=== PATIENT | male | born 2000 | race African-American/Black ===

== ENCOUNTER 2024-04-01 17:04 | Emergency (ER) | payer OTHER ==
[2024-04-01] MEDS ORDERED: TDAP (DIPHTH,PERTUSS(ACELL),TET VAC) 0.5 ML VIAL IMVAC ONE (17:34)
[2024-04-01] MEDS ORDERED: HYDROCODONE/APAP 7.5/325 MG TAB ONE (17:34)
[2024-04-01] MEDS ORDERED: LIDOCAINE 1% 20 ML MDV ONE (17:34)
--- NOTE | 2024-04-01 18:03 | RAD REPORT ---
EXAM DESCRIPTION: RAD - Chest Pa And Lat (2 Views) - 04/01/2024 5:57 pm CLINICAL HISTORY: foreign body Chest pain. COMPARISON: No comparisons FINDINGS: The lungs are clear. The heart is normal in size. No displaced fractures. Soft tissue fore ign bodies posteriorly. IMPRESSION: No acute or concerning finding suspected.
--- NOTE | 2024-04-01 18:26 | EDPHYS ---
Physician Documentation [facility] Name: Reggie Kim Age: 23 yrs Sex: Male : 2000 Arrival Date: 04/01/2024 Time: 17:04 Bed 6 Private MD: ED Physician Dwayne Burleson HPI: 04/01 17:25 This 23 yrs old Black Male presents to ER via EMS with complaints of Puncture Wound To sb4 Back - Tased by police. 17:25 patient was tased by the police just [employer]IST[employer] RE[employer]IONIST and 2 of the barbs are stuck in his back. he sb4 is unsure if his tetanus is up to date. olga any other injuries. Historical: - Allergies: 17:12 No Known Allergies; ph - PMHx: 17:12 None; ph - Immunization history:: Adult Immunizations unknown. - Infectious Disease History:: Denies. - Social history:: Smoking status: Reported history of juuling and/or vaping. Patient/guardian denies using alcohol, street drugs. ROS: 17:25 Constitutional: Negative for fever, chills, and weight loss, sb4 17:25 Skin: Positive for puncture, of the right scapular area and thoracic area, 17:25 All other systems are negative, Exam: 17:25 Constitutional: This is a well developed, well nourished patient who is awake, alert, sb4 and in no acute distress. Head/Face: Normocephalic, atraumatic. Eyes: Extra-ocular motions intact. Periorbital areas with no swelling, redness, or edema. ENT: Mucous membranes moist. 17:25 Skin: injury, puncture(s), that are superficial, of the thoracic area and right scapular area, 2 taser barbs lodged, Vital Signs: 17:07 BP 140 / 102; Pulse 122; Resp 18; Temp 98.4; Pulse Ox 100% on R/A; Weight 83.91 kg; ph Height 5 ft. 8 in. ; 17:07 Body Mass Index 28.13 (83.91 kg, 172.72 cm) ph Procedures: 18:24 Foreign Body Removal: taser prongs, from the thoracic area and right scapular area, by sb4 using a hemostat, incising to remove, using lidocaine 1% without epinephrine to anesthesize the area, Dressinx4s were used to dress the wound, The patient tolerated the removal well. MDM: 17:08 Patient medically screened. sb4 17:25 Data reviewed: vital signs, nurses notes, EMS record, radiologic studies, and as a sb4 result, I will discharge patient. 04/01 17:50 Order name: Chest Pa And Lat (2 Views); Complete Time: 18:05 EDMS Administered Medications: 17:39 Drug: Boostrix Tdap IM 0.5 ml IM once; as a single dose Route: IM; Site: left deltoid; ph 17:39 Drug: Hydrocodone-Acetaminophen PO (7.5 mg-325 mg) 1 tabs PO once Route: PO; ph Disposition: 18:50 Co-signature as Attending Physician, Dwayne Burleson MD I reviewed the patient's care rt provided by the Advanced Practice Provider and agree with the diagnosis and treatment plan. Disposition Summary: 04/01/24 18:26 Discharge Ordered Notes: Location: Home sb4 Problem: new sb4 Symptoms: have improved sb4 Condition: Stable sb4 Diagnosis - Puncture wounds with foreign bodies of superificial upper back sb4 Followup: sb4 - With: Private Physician - When: 2 - 3 days - Reason: Recheck today's complaints, Re-evaluation by your physician Discharge Instructions: - Discharge Summary Sheet sb4 - Puncture Wound, [id number] sb4 - Skin Foreign Body sb4 Forms: - Patient Portal Instructions sb4 - Leadership Thank You Letter sb4 Signatures: Dispatcher [employer] Evette Chanel RN RN ph Alisia Danielson, PA-C PA-C sb4 Dwayne Burleson MD MD rt Corrections: (The following items were deleted from the chart) 17:50 17:20 Spine Thoracic Ap/Lat+[email or web address] ordered. EDMS EDMS
--- NOTE | 2024-04-01 18:26 | ER ---
Nurse's Notes [facility] Name: Reggie Kim Age: 23 yrs Sex: Male : 2000 Arrival Date: 04/01/2024 Time: 17:04 Bed 6 Private MD: Diagnosis: Puncture wounds with foreign bodies of superificial upper back Presentation: 04/01 17:07 Chief complaint: EMS states: Tased in back by PD, unable to remove taser barbs, also ph c/o abdominal pain, IV to LAC, 15 mg toradol given, pain improved from 4/10 to 2/10, initial BP(143/104) and HR (137) elevated. Coronavirus screen: Vaccine status: Patient reports being unvaccinated. Ebola Screen: No symptoms or risks identified at this time. Initial Sepsis Screen: Does the patient meet any 2 criteria? No. Patient's initial sepsis screen is negative. Does the patient have a suspected source of infection? No. Patient's initial sepsis screen is negative. Risk Assessment: Do you want to hurt yourself or someone else? Patient reports no desire to harm self or others. Onset of symptoms was April 01, 2024. 17:07 Method Of Arrival: EMS: [facility] 17:07 Acuity: [facility] 3 ph Triage Assessment: 17:12 General: Appears in no apparent distress. Behavior is cooperative, appropriate for age. ph General: Taser barbs x 2 noted to R upper back. Pain: Complains of pain in back and abdomen. Neuro: Level of Consciousness is awake, alert, obeys commands, Oriented to person, place, time, situation. Cardiovascular: Capillary refill < 3 seconds in bilateral fingers Patient's skin is warm and dry. Respiratory: Airway is patent Respiratory effort is even, unlabored, Respiratory pattern is regular, symmetrical. GI: Reports lower abdominal pain, Patient currently denies nausea, vomiting. Derm: Skin is pink, warm \T\ dry. Musculoskeletal: Circulation, motion, and sensation intact. Range of motion: intact in all extremities. Historical: - Allergies: 17:12 No Known Allergies; ph - PMHx: 17:12 None; ph - Immunization history:: Adult Immunizations unknown. - Infectious Disease History:: Denies. - Social history:: Smoking status: Reported history of juuling and/or vaping. Patient/guardian denies using alcohol, street drugs. Screenin:13 [facility] ED Fall Risk Assessment (Adult) History of falling in the last 3 months, ph including since admission No falls in past 3 months (0 pts) Confusion or Disorientation No (0 pts) Intoxicated or Sedated No (0 pts) Impaired Gait No (0 pts) Mobility Assist Device Used No (0 pt) Altered Elimination No (0 pt) Score/Fall Risk Level 0 - 2 = Low Risk Oriented to surroundings, Maintained a safe environment. Abuse screen: Denies threats or abuse. Denies injuries from another. Nutritional screening: No deficits noted. Tuberculosis screening: No symptoms or risk factors identified. Vital Signs: 17:07 BP 140 / 102; Pulse 122; Resp 18; Temp 98.4; Pulse Ox 100% on R/A; Weight 83.91 kg; ph Height 5 ft. 8 in. ; 17:07 Body Mass Index 28.13 (83.91 kg, 172.72 cm) ph ED Course: 17:07 Patient arrived in ED. eb 17:07 Evette Palumbo, KEVIN is Primary Nurse. ph 17:08 Alisia Danielson PA-C is PHCP. sb4 17:08 Dwayne Burleson MD is Attending Physician. sb4 17:10 Triage completed. ph 17:13 Arm band placed on Patient placed in an exam room, on a stretcher, on pulse oximetry. ph 17:40 Patient has correct armband on for positive identification. Bed in low position. Call ph light in reach. Side rails up X 1. Pulse ox on. NIBP on. Door closed. Noise minimized. 17:59 Chest Pa And Lat (2 Views) In Process Unspecified. EDMS Administered Medications: 17:39 Drug: Boostrix Tdap IM 0.5 ml IM once; as a single dose Route: IM; Site: left deltoid; ph 17:39 Drug: Hydrocodone-Acetaminophen PO (7.5 mg-325 mg) 1 tabs PO once Route: PO; ph Medication: 17:40 VIS not applicable for this client. ph Outcome: 18:26 Discharge ordered by . sb4 18:40 Patient left the ED. Signatures: Dispatcher [employer] EDME Evette Palumbo RN RN Chelsey Schneider RN RN AntonyIsamar jenkins Sophia, PA-C PA-C sb4 Corrections: (The following items were deleted from the chart) 17:12 17:07 Chief complaint: EMS states: Tazed in back by PD, unable to remove tazer barbs, ph also c/o abdominal pain, IV to LAC, 15 mg toradol given, pain improved from 4/10 to 2/10, initial BP(143/104) and HR (137) elevated ph
[2024-04-01 18:45] VITALS: BP 140/102; TEMP 98.4; O2SAT 100
== END 2024-04-01 18:40 | disposition home or self-care (01) ==
LOC: ER 17:04
PROC: 0JB70ZZ Excision of Back Subcutaneous Tissue and Fascia, Open Approach (ICD-10-PCS; principal; 2024-04-01)
DX: S21.241A Puncture wound with foreign body of right back wall of thorax without penetration into thoracic cavity, initial encounter (principal); Y35.831A Legal intervention involving a conducted energy device, law enforcement official injured, initial encounter; Y93.89 Activity, other specified; Y92.9 Unspecified place or not applicable; Z23 Encounter for immunization
CPT/HCPCS: 71046; 96372; 99284; 10120; J2001